=== PATIENT | female | born 1990 | race Caucasian/White ===

== ENCOUNTER 2020-12-29 16:45 | Emergency (ER) | payer OTHER ==
[2020-12-29 17:39] LABS: BASOPHIL 0.3 % (0-2); EOSINOPHIL 0.5 % (0-5); HCT 40.3 % (37.0-47.0); HGB 14.1 g/dl (12.5-16.0); LYMPHOCYTE 11.8 % (15-48); MCH 34.3 pg (25.0-31.0); MCV 98.1 fL (78.0-100.0); MONOCYTE 5.4 % (0-12); MPV 10.1 fL (6.0-9.5); NEUTROPHIL 81.7 % (41-80); NRBC 0; PLT 248 K/uL (150-400); RBC 4.11 M/uL (4.20-5.40); RDW 11.8 % (11.5-14.0); WBC 7.8 K/uL (4.0-10.5)
[2020-12-29 17:48] LABS: BILIRUBIN - TOTAL 0.4 mg/dL (0.2-1.0); BUN/CREAT RATIO (CALC) 8.7 RATIO; CREATININE 0.69 mg/dL (0.51-0.95); GLOBULIN (CALCULATION) 3.2 g/dL; POTASSIUM 3.8 mmol/L (3.5-5.1); TOTAL PROTEIN 7.2 g/dL (6.4-8.2)
[2020-12-29 17:52] LABS: LACTIC ACID 0.8 mmol/L (0.4-1.9)
[2020-12-29] MEDS ORDERED: VIBRAMYCIN100 MG PO (18:40)
== END 2020-12-29 19:35 | disposition home or self-care (01) ==
LOC: FER 16:45
PROVIDERS: Emergency Medicine
DX: J18.9 Pneumonia, unspecified organism (principal); J40 Bronchitis, not specified as acute or chronic; J06.9 Acute upper respiratory infection, unspecified; Z86.711 Personal history of pulmonary embolism; Z86.718 Personal history of other venous thrombosis and embolism; Z99.81 Dependence on supplemental oxygen; Z79.01 Long term (current) use of anticoagulants; Z91.041 Radiographic dye allergy status; Z88.0 Allergy status to penicillin; Z88.1 Allergy status to other antibiotic agents; Z20.822 Contact with and (suspected) exposure to COVID-19
CPT/HCPCS: 36415; 36600; 71045; 80053; 82803; 83605; 83880; 85025; 93005; U0002

== ENCOUNTER 2021-03-27 13:22 | Emergency (ER) | payer OTHER ==
[~2021-03-27 13:22] MED LIST: VIBRAMYCIN100 MG PO
[2021-03-27 15:30] LABS: BASOPHIL 0.4 % (0-2); BILIRUBIN NEGATIVE (NEGATIVE); BLOOD NEGATIVE Ery/uL (NEGATIVE); CLARITY CLEAR (CLEAR); COLOR YELLOW (YELLOW); EOSINOPHIL 0.9 % (0-5); GLUCOSE (U) NORMAL (NORMAL); HCT 38.8 % (37.0-47.0); HGB 12.9 g/dl (12.5-16.0); LEUKOCYTES TRACE Leu/uL (NEGATIVE); LYMPHOCYTE 21.2 % (15-48); MCH 33.2 pg (25.0-31.0); MCHC 33.2 g/dL (32.0-36.0); MONOCYTE 7.2 % (0-12); MPV 9.6 fL (6.0-9.5); NEUTROPHIL 69.8 % (41-80); NITRITE NEGATIVE (NEGATIVE); NRBC 0; PLT 283 K/uL (150-400); PROTEIN NEGATIVE (NEGATIVE); RBC 3.88 M/uL (4.20-5.40); RDW 11.6 % (11.5-14.0); UROBILINOGEN 0.2 mg/dL (0.2-1.0); WBC 7.9 K/uL (4.0-10.5)
[2021-03-27 15:50] LABS: BACTERIA 1+; CREATININE 0.65 mg/dL (0.51-0.95); POTASSIUM 4.3 mmol/L (3.5-5.1)
== END 2021-03-27 16:45 | disposition home or self-care (01) ==
LOC: FER 13:22
PROVIDERS: Nurse Practitioner Family
DX: S93.401A Sprain of unspecified ligament of right ankle, initial encounter (principal); R07.89 Other chest pain; Z86.711 Personal history of pulmonary embolism; Z86.14 Personal history of Methicillin resistant Staphylococcus aureus infection; Z88.0 Allergy status to penicillin; Z88.1 Allergy status to other antibiotic agents; X50.1XXA Overexertion from prolonged static or awkward postures, initial encounter
CPT/HCPCS: 36415; 73610; 80048; 81001; 85025; 87088; 93005; 93971

== ENCOUNTER 2022-02-03 22:07 | Emergency (ER) | payer OTHER ==
[2022-02-04 00:48] LABS: BASOPHIL 0.4 % (0-2); EOSINOPHIL 0.2 % (0-5); HCT 43.5 % (37.0-47.0); HGB 14.8 g/dl (12.5-16.0); LYMPHOCYTE 34.9 % (15-48); MCH 33.4 pg (25.0-31.0); MCV 98.2 fL (78.0-100.0); MONOCYTE 4.6 % (0-12); MPV 9.7 fL (6.0-9.5); NEUTROPHIL 59.7 % (41-80); NRBC 0; PLT 378 K/uL (150-400); RBC 4.43 M/uL (4.20-5.40); RDW 11.5 % (11.5-14.0); WBC 9.4 K/uL (4.0-10.5)
[2022-02-04 01:07] LABS: ALBUMIN 4.2 g/dL (3.4-5.0); ALKALINE PHOSHATASE 74 U/L (46-116); ALT 31 U/L (14-59); AST 18 U/L (15-37); BILIRUBIN - TOTAL 0.4 mg/dL (0.2-1.0); BUN 8 mg/dL (7-18); BUN/CREAT RATIO (CALC) 12.3 RATIO; CHLORIDE 102 mmol/L (98-107); CO2 (BICARBONATE) 25 mmol/L (21-32); CREATININE 0.65 mg/dL (0.51-0.95); GLOBULIN (CALCULATION) 4.2 g/dL; GLUCOSE 114 mg/dL (74-106); LIPASE 224 U/L (73-393); POTASSIUM 3.3 mmol/L (3.5-5.1); TOTAL PROTEIN 8.4 g/dL (6.4-8.2)
[2022-02-04 01:08] LABS: ACETAMINOPHEN (TYLENOL) < 2.0 ug/mL (10.0-30.0)
== END 2022-02-04 05:52 | disposition home or self-care (01) ==
LOC: FER 22:07
PROVIDERS: Internal Medicine
DX: F10.129 Alcohol abuse with intoxication, unspecified (principal); F15.90 Other stimulant use, unspecified, uncomplicated; Z91.041 Radiographic dye allergy status; Z88.1 Allergy status to other antibiotic agents; Z88.0 Allergy status to penicillin; Y90.8 Blood alcohol level of 240 mg/100 ml or more
CPT/HCPCS: 36415; 80053; 83690; 85025; G0480; J2060; J7120

== ENCOUNTER 2022-03-10 13:13 | Emergency (ER) | payer OTHER ==
[2022-03-10 13:57] LABS: BASOPHIL 0.4 % (0-2); EOSINOPHIL 0.6 % (0-5); HCT 40.2 % (37.0-47.0); LYMPHOCYTE 19.3 % (15-48); MCH 34.1 pg (25.0-31.0); MCHC 34.8 g/dL (32.0-36.0); MCV 97.8 fL (78.0-100.0); MONOCYTE 9.3 % (0-12); MPV 9.8 fL (6.0-9.5); NRBC 0; PLT 216 K/uL (150-400); RBC 4.11 M/uL (4.20-5.40); RDW 11.9 % (11.5-14.0); WBC 6.7 K/uL (4.0-10.5)
[2022-03-10 14:13] LABS: ALBUMIN 3.7 g/dL (3.4-5.0); BILIRUBIN - TOTAL 0.6 mg/dL (0.2-1.0); BUN/CREAT RATIO (CALC) 13.6 RATIO; CREATININE 0.59 mg/dL (0.51-0.95); GLOBULIN (CALCULATION) 3.6 g/dL; POTASSIUM 2.8 mmol/L (3.5-5.1); TOTAL PROTEIN 7.3 g/dL (6.4-8.2)
[2022-03-10 15:25] LABS: AMPHETAMINES NEGATIVE (NEGATIVE); BARBITURATES NEGATIVE (NEGATIVE); ECSTASY (MDMA) NEGATIVE (NEGATIVE); MARIJUANA (THC) NEGATIVE (NEGATIVE); METHADONE NEGATIVE (NEGATIVE); OPIATES NEGATIVE (NEGATIVE); OXYCODONE NEGATIVE (NEGATIVE)
[2022-03-10] MEDS ORDERED: LIBRIUM25 MG PO (16:03)
[2022-03-10] MEDS ORDERED: ONDANSETRON ODT4 MG PO (16:04)
[2022-03-10 16:27] LABS: BILIRUBIN NEGATIVE (NEGATIVE); BLOOD NEGATIVE Ery/uL (NEGATIVE); CLARITY CLEAR (CLEAR); COLOR YELLOW (YELLOW); GLUCOSE (U) NORMAL (NORMAL); LEUKOCYTES NEGATIVE Leu/uL (NEGATIVE); NITRITE NEGATIVE (NEGATIVE); PROTEIN TRACE (LOW) mg/dL (NEGATIVE); SPECIFIC GRAVITY <=1.005 (1.001-1.030); UROBILINOGEN 0.2 mg/dL (0.2-1.0)
== END 2022-03-10 18:01 | disposition home or self-care (01) ==
LOC: FER 13:13
PROVIDERS: Emergency Medicine
DX: F10.20 Alcohol dependence, uncomplicated (principal); Z20.822 Contact with and (suspected) exposure to COVID-19; Z28.310 Unvaccinated for COVID-19; Z88.0 Allergy status to penicillin; Z88.1 Allergy status to other antibiotic agents; Y90.8 Blood alcohol level of 240 mg/100 ml or more
CPT/HCPCS: 36415; 71045; 80053; 80305; 81003; 84484; 85025; 93005; G0480; J2001; J2405; J3411; J3475; J3480; J7120; U0002

== ENCOUNTER 2022-05-27 17:32 | Emergency (ER) | payer OTHER ==
[~2022-05-27 17:32] MED LIST changes: +LIBRIUM25 MG PO; +ONDANSETRON ODT4 MG PO
[2022-05-27 20:43] LABS: EOSINOPHIL 0.8 % (0-5); HCT 42.7 % (37.0-47.0); HGB 14.7 g/dl (12.5-16.0); LYMPHOCYTE 28.7 % (15-48); MCH 34.4 pg (25.0-31.0); MCHC 34.4 g/dL (32.0-36.0); MONOCYTE 6.5 % (0-12); MPV 9.9 fL (6.0-9.5); NEUTROPHIL 62.8 % (41-80); NRBC 0; PLT 342 K/uL (150-400); RBC 4.27 M/uL (4.20-5.40); RDW 12.8 % (11.5-14.0); WBC 6.3 K/uL (4.0-10.5)
[2022-05-27 20:57] LABS: BILIRUBIN - TOTAL 0.4 mg/dL (0.2-1.0); BUN/CREAT RATIO (CALC) 14.1 RATIO; CREATININE 0.71 mg/dL (0.51-0.95); POTASSIUM 3.6 mmol/L (3.5-5.1)
[2022-05-27] MEDS ORDERED: PHENERGAN25 M1 PO ×2 (21:55→22:09)
[2022-05-27] MEDS ORDERED: CLONIDINE HCL0.1 MG PO ×2 (21:55→22:09)
[2022-05-27] MEDS ORDERED: ONDANSETRON ODT4 MG PO ×2 (21:55→22:09)
== END 2022-05-27 23:20 | disposition home or self-care (01) ==
LOC: FER 17:32
PROVIDERS: Internal Medicine
DX: F10.139 Alcohol abuse with withdrawal, unspecified (principal); R00.0 Tachycardia, unspecified; F17.210 Nicotine dependence, cigarettes, uncomplicated; Z88.0 Allergy status to penicillin; Z91.041 Radiographic dye allergy status; Z28.310 Unvaccinated for COVID-19
CPT/HCPCS: 36415; 80053; 84484; 85025; 93005; G0480; J2060; J2405; J2550; J3411; J3475; J7120